=== PATIENT | female | born 1970 | race Two or more races ===

== ENCOUNTER 2016-08-13 05:23 | Emergency (ER) | payer SELFPAY ==
[~2016-08-13] VITALS: Ht 170.2 cm; Wt 82.0 kg
[2016-08-13] MEDS ORDERED: ASPIRIN 81MG TABLET PO STA (07:26)
[2016-08-13] MEDS ORDERED: SODIUM CHLORIDE 0.9% 1,000 ML IV ONE (07:30)
[2016-08-13] MEDS ORDERED: ACETAMINOPHEN 500MG TABLET PO ONE (07:30)
[2016-08-13 07:43] LABS: BASOPHILS % 0.5 % (0.0-2.0); EOSINOPHILS % 0.3 % (0.0-5.0); HEMATOCRIT. 37.8 % (36.0-48.0); HEMOGLOBIN. 12.6 g/dL (12.0-16.0); LYMPHOCYTES % 10.8 % (20.0-50.0); MEAN CORPUSCULAR HEMOGLOBIN 27.7 pg (28.0-32.0); MEAN CORPUSCULAR VOLUME 82.7 fL (81.0-99.0); MEAN PLATELET VOLUME 8.8 fl (7.4-10.4); MONOCYTES % 5.9 % (2.0-8.0); NEUTROPHILS % 82.5 % (40.0-76.0); PLATELET 254 x1000/uL (130-400); RED BLOOD CELL COUNT 4.56 mill/uL (4.2-5.4); RED CELL DISTRIBUTION WIDTH 14.5 % (11.6-14.6)
[2016-08-13 07:52] LABS: CHLORIDE 105 mEq/L (98-107)
[2016-08-13 07:53] LABS: CARBON DIOXIDE 23 mEq/L (21-32); INR 1.1; PARTIAL THROMBOPLASTIN TIME 26.8 sec (24.0-34.0)
[2016-08-13 08:03] LABS: CREATINE KINASE 38 IU/L (26-192)
[2016-08-13 08:04] LABS: CREATINE KINASE MB FRACTION 0.9 ng/mL (0.5-3.6); TROPONIN I < 0.02 ng/mL (0.00-0.04)
[2016-08-13 09:09] LABS: CLARITY URINE CLEAR (CLEAR); COLOR URINE YELLOW (YELLOW); GLUCOSE URINE NEGATIVE (NEGATIVE); KETONES URINE TRACE (NEGATIVE); LEUKOCYTE ESTERASE URINE NEGATIVE (NEGATIVE); NITRITE URINE NEGATIVE (NEGATIVE); OCCULT BLOOD URINE NEGATIVE (NEGATIVE); PROTEIN URINE NEGATIVE (NEGATIVE); SPECIFIC GRAVITY URINE 1.007 (1.005-1.030); UROBILINOGEN URINE 0.2 E.U./dL (0.2-1.0)
[2016-08-13 09:24] LABS: *AMPHETAMINES SCREEN URINE NEGATIVE (NEGATIVE); *BARBITURATES SCREEN URINE NEGATIVE (NEGATIVE); *BENZODIAZEPINES SCREEN URINE NEGATIVE (NEGATIVE); *COCAINE SCREEN URINE NEGATIVE (NEGATIVE); CANNABINOID URINE SCREEN NEGATIVE (NEGATIVE); METHADONE URINE SCREEN NEGATIVE (NEGATIVE); OPIATES URINE SCREEN NEGATIVE (NEGATIVE); PHENCYCLIDINE URINE SCREEN NEGATIVE (NEGATIVE)
[2016-08-13 10:06] VITALS: BP 176/93
== END 2016-08-13 11:32 | disposition home or self-care (01) ==
LOC: ER 06:11
DX: F41.9 Anxiety disorder, unspecified (principal); I51.7 Cardiomegaly; J45.909 Unspecified asthma, uncomplicated; E11.9 Type 2 diabetes mellitus without complications; I10 Essential (primary) hypertension
CPT/HCPCS: 36415; 71010; 80053; 80305; 81003; 81025; 82550; 82553; 82962; 83690; 83880; 84484; 85025; 85610; 85730; 93005; 99285; G0482; J7030; Z7610